=== PATIENT | female | born 1950 | race Caucasian/White ===

== ENCOUNTER → 2022-05-09 09:04 | Outpatient (BNVA) | payer MEDICARE, OTHER, SELFPAY | PROVIDERS: PCP Nurse Practitioner Family; Visit Provider Hospitalist | DX: J45.20 Mild intermittent asthma, uncomplicated (principal) | CPT/HCPCS: 99202 ==

== ENCOUNTER 2022-12-20 07:21 | Outpatient (REF) | payer MEDICARE, OTHER, SELFPAY ==
--- NOTE | ~2022-12-20 | XR_ITS ---
EXAMINATION: XR CHEST 2 VIEWS CLINICAL INFORMATION: Asthma. COMPARISON: None. TECHNIQUE: Frontal and lateral views of the chest were obtained. FINDINGS: The heart, great vessels, pulmonary vasculature and mediastinum are normal. The lungs show no focal infiltrate, effusion or pneumothorax. There is mild bronchiolar wall thickening. There is no acute osseous abnormality. XR/XR chest 2V IMPRESSION: 1. No focal infiltrate or congestive heart failure is seen. 2. There is mild bronchiolar wall thickening, consistent with the provided history of asthma.
== END 2022-12-20 07:22 | disposition home or self-care (01) ==
LOC: HO.XRAY 07:21
PROVIDERS: PCP Nurse Practitioner Family; Visit Provider Hospitalist
DX: J45.909 Unspecified asthma, uncomplicated (principal)
CPT/HCPCS: 71046

== ENCOUNTER 2022-12-22 15:40 | Outpatient (REF) | payer MEDICARE, OTHER, SELFPAY ==
--- NOTE | 2022-12-22 17:24 | PFT_ITS ---
INDICATION: Asthma. SPIROMETRY: FEV1 to FVC of 75%. FEV1 of 2.09 L, which is 100% predicted. FVC of 2.77 L, which is 100% predicted. No significant response to bronchodilators noted. Maximum voluntary ventilation 110% predicted. LUNG VOLUMES: Total lung capacity 95% predicted. DIFFUSION CAPACITY: DLCO 67% predicted. COMPARISON: None. INTERPRETATION: No obstructive nor restrictive ventilatory defects have been identified. No significant response to bronchodilators noted. Normal maximum voluntary ventilation. Lung volumes are within normal limits. The patient, however, has an isolated mild diffusion impairment. Should correct for hemoglobin. Clinical correlation warranted. If asthma is in the differential, methacholine challenge may be helpful in assessing for hyperactive airways. Ramiro Sebastian MD MR/MODL / [id number]
== END 2022-12-22 15:41 | disposition home or self-care (01) ==
LOC: HO.RESP 15:40
PROVIDERS: Visit Provider Hospitalist
DX: J45.909 Unspecified asthma, uncomplicated (principal)
CPT/HCPCS: 94060; 94727; 94729

== ENCOUNTER → 2023-02-17 08:48 | Outpatient (BNVA) | payer MEDICARE, OTHER, SELFPAY | PROVIDERS: PCP Nurse Practitioner Family; Visit Provider Hospitalist | DX: J45.20 Mild intermittent asthma, uncomplicated (principal); J31.0 Chronic rhinitis | CPT/HCPCS: 99212 ==

== ENCOUNTER 2024-02-07 09:37 | Outpatient (REF) | payer MEDICARE, OTHER, SELFPAY ==
[2024-02-07 09:00] VITALS: PULSE 69; RESP 16; O2SAT 98
--- NOTE | 2024-02-07 11:27 | PFT_ITS ---
Indication: Asthma Spirometry [FEV1 to FVC 65% post bronchodilators 71% pre bronchodilator. FEV1 1.8 L; FVC 2.7 L. there was a significant response to bronchodilators noted. Maximum voluntary ventilation 85% predicted] Lung Volumes [Total lung capacity 94% predicted] Diffusion Capacity [Diffusing capacity 85% predicted] Comparisons [none] Interpretation [There is an obstructive ventilatory defect consistent with mild obstructive airway disease. This may be the result of uncontrolled asthma versus mild COPD. The patient did have a significant response to bronchodilators noted. Also small airways disease. Lung volumes and diffusing capacity within normal limits. Clinical correlation worth it.] MTDD
== END 2024-02-07 09:38 | disposition home or self-care (01) ==
LOC: HO.RESP 09:37
PROVIDERS: PCP Internal Medicine; Visit Provider Hospitalist
DX: J45.20 Mild intermittent asthma, uncomplicated (principal)
CPT/HCPCS: 94010; 94640; 94727; 94729

== ENCOUNTER → 2024-02-07 11:27 | Outpatient (BNV) | payer MEDICARE, OTHER, SELFPAY | PROVIDERS: PCP Internal Medicine; Visit Provider Hospitalist | DX: J45.20 Mild intermittent asthma, uncomplicated (principal) | CPT/HCPCS: 94060; 94727; 94729 ==

== ENCOUNTER 2024-03-05 09:14 | Outpatient (AMB) | payer MEDICARE, OTHER, SELFPAY ==
[2024-03-05 09:35] VITALS: PULSE 72; O2SAT 97; BMI 24.2
--- NOTE | 2024-03-05 09:35 | A.OFFVIS_ITS ---
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 She the patient has done well on the current regimen. She does have underlying allergies and has responded well to the allergy therapy. She denies having to use any prednisone. And she is not using her rescue inhaler regularly, Actually probably once or twice a month. the patient has not had any recent pulmonary function studies are chest x-rays. Her last pulmonary function studies done in [place] she was told that her lung capacity was good. I do not have those results to review. The patient also has been reluctant taking too many medications. She the patient does not like the idea of using inhaled steroids. She had been on an ellipta device. However she stopped it because she was getting a dry mouth and sore throat and she does not feel like she needed it. Therefore she stop did several months ago and she has been okay without it. 02/17/2023 the patient is here for a pulmonary follow-up visit. The patient overall doing well. She is responding well to the current medication regimen. She has not had any flare ups and has not required any prednisone. She did undergo pulmonary function studies and we personally reviewed them. No evidence of any obstructive nor restrictive ventilatory defects. However, she has a moderate isolated diffusion impairment. No evidence of any anemia. No clear explanation for that impairment. At this point will plan to repeat the PFTs in 1 years time. If the patient develops any worsening symptoms prior to that she is to call for an earlier assessment. In addition to that she had a chest x-ray that we personally reviewed demonstrating no acute disease. 03/05/2024 the patient is here for a pulmonary follow-up visit. Since we last spoke back in December did develop a worsening cough. Productive in nature. She felt some discomfort in the right side of her chest. [id number] severity. She was going to call the office but she just stayed home and she continue her respiratory medications. She is felt better overall. She has been working outside with a limitations. Although still feels a slight achiness on the right lung area. Her last chest x-ray was last year which demonstrated no acute disease. The patient has been on Ventolin. She did undergo pulmonary function studies which we personally reviewed demonstrating a mild obstruction. Therefore, I did have a sample of Breo to provide her and she is going to try daily. I did instruct her how to use it. In addition to that if her symptoms persist I did give her an x-ray order she can come in and get an x-ray. Will follow-up in 6 months or sooner if she does not feel any better. [facility] Medical History (Updated 03/05/24 @ 09:56 by Ramiro Sebastian MD) Chronic rhinitis Asthma Social History (Updated 05/09/22 @ 09:35 by ALINE Quintanilla) Patient Tobacco Use Status: Former Tobacco user Tobacco use type: Cigarette Years Smoked: 25 Years Review of Systems Const Denies fever(s) Eyes Denies change in vision ENT Denies change in voice and Reports nasal congestion Card Denies chest pain and Denies dyspnea Resp Reports cough and Denies dyspnea GI Reports no additional complaints Musc Reports no additional complaints Skin/Breast Denies rash Neuro Reports no additional complaints Physical Exam Vital Signs: Last Vital Signs Pulse 72 03/05/24 09:35 Pulse Ox 97 03/05/24 09:35 Oxygen Delivery Method Room Air 03/05/24 09:35 BMI result Body Mass Index 24.2 Const General: comfortable HEENT Head: Yes normal to inspection Eyes General: appearance normal, both eyes and all related structures Neck Neck: Yes supple Chest Chest palpation & inspection: normal inspection of the chest Resp Effort & Inspection: normal respiratory effort Auscultation: diminished lung sounds Cardio Rate: regular rate Rhythm: regular rhythm Heart sounds: S1 normal heart sound present and S2 normal heart sound present Skin General skin exam: no rashes or lesions noted Extrem General: No clubbing, No cyanosis and Yes edema (trace) Assessment & Plan Assessment & Plan (1) Asthma: Code(s): J45.909 - Unspecified asthma, uncomplicated Category: Medical Qualifiers: Asthma complication type: uncomplicated Asthma persistence: intermittent Asthma severity: mild Qualified Code(s): J45.20 - Mild intermitte nt asthma, uncomplicated (2) Chronic rhinitis: Code(s): J31.0 - Chronic rhinitis Category: Medical Plan Trial Breo 200 daily continue EDGARDO as needed nasal rinsing continue Accolate BID anti-istamines as needed CXR F/U 6 months Orders: Orders XR chest 2V Today R07.89 - Other chest pain Coding Level of Care Code Est Pt Level 4 (95474) Diagnoses Mild intermittent asthma without complication J45.20 Asthma complication type: uncomplicated Asthma persistence: intermittent Asthma severity: mild Chronic rhinitis J31.0 Time Spent (min) 16
== END 2024-03-05 10:00 | disposition home or self-care (01) ==
PROVIDERS: PCP Internal Medicine; Visit Provider Hospitalist
DX: J45.20 Mild intermittent asthma, uncomplicated (principal); J31.0 Chronic rhinitis
CPT/HCPCS: 99214

== ENCOUNTER → 2024-03-05 09:14 | Outpatient (BNVA) | payer MEDICARE, OTHER, SELFPAY | PROVIDERS: PCP Internal Medicine; Visit Provider Hospitalist | DX: J45.20 Mild intermittent asthma, uncomplicated (principal); J31.0 Chronic rhinitis | CPT/HCPCS: 99212 ==

== ENCOUNTER 2024-03-28 09:54 | Outpatient (REF) | payer MEDICARE, OTHER, SELFPAY ==
--- NOTE | ~2024-03-28 | XR_ITS ---
EXAMINATION: XR CHEST CLINICAL INFORMATION: Patient states she has been having problems with her asthma for a year. Chest pain. COMPARISON: December 22, 2022 TECHNIQUE: 2 views of the chest were obtained. FINDINGS: Mild S-shaped thoracolumbar scoliosis with multilevel degenerative changes. There is no gross pneumothorax. No pleural effusion. Heart size is normal. Moderate degenerative changes in the thoracic spine. No new focal consolidation to suggest pneumonia. XR/XR chest 2V IMPRESSION: No evidence of pneumonia.
== END 2024-03-28 09:55 | disposition home or self-care (01) ==
LOC: HO.XRAY 09:54
PROVIDERS: PCP Internal Medicine; Visit Provider Hospitalist
DX: R07.89 Other chest pain (principal)
CPT/HCPCS: 71046

== ENCOUNTER 2024-07-24 07:26 | Outpatient (AMB) | payer MEDICARE, OTHER, SELFPAY ==
[2024-07-24 07:48] VITALS: BP 134/80; PULSE 73; O2SAT 96; BMI 25.1
--- NOTE | 2024-07-24 07:48 | MHC.PC.OV ---
Vital Signs 07/24/24 07:48 Height 5 ft 4 in Weight 146 lb BMI 25.1 BP 134/80 Blood Pressure Location Lt brachial Position Sitting Pulse 73 Pulse Source Pulse Oximeter Pulse Oximetry (%) 96 Oxygen Delivery Method Room Air Intake Visit Reasons: Annual physical Intake Note: Pt is here today as a New patient to [facility] care and PE Allergies acetaminophen [From Tylenol] Allergy (Severe, Verified 07/24/24 07:50) Vomiting NSAIDS (Non-Steroidal Anti-Inflamma Allergy (Severe, Verified 07/24/24 07:50) Hives tetanus toxoid, adsorbed Allergy (Severe, Verified 07/24/24 07:50) Anaphylaxis Medication List - Last Reconciled 07/24/24 by Audra Espinoza MD albuterol sulfate 90 mcg/actuation 2 puffs inhalation Q6H PRN amlodipine 5 mg PO DAILY irbesartan 150 mg PO DAILY levothyroxine (Levoxyl) 50 mcg PO DAILY rosuvastatin 20 mg PO BEDTIME zafirlukast 20 mg PO BID Tobacco use date assessed: 07/24/24 Fall risk assessment: No Falls in past year Last assessed Fall Risk: 07/24/24 Dental Screening Dental Screen Date: 07/24/24 Did you have a dental visit in the last 12 months?: Yes Did you have a dental problem in the last 6 months where you did not have access to dental care?: Yes Was dental information given to patient?: Patient has dentist HPI Annual physical HPI Details Pt presents for [employer]AF[employer]CTION POL[employer] PE. Past medical history includes hypertension hyperlipidemia hypothyroidism. Patient complains of persistent chronic right knee pain for the last 2 years since total replacement surgery. She is established with [facility]. 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 1. Little interest or pleasure in doing things: not at all 2. Feeling down, depressed, or hopeless: not at all 3. Trouble falling or staying asleep, or sleeping too much: not at all 4. Feeling tired or having little energy: not at all 5. Poor appetite or overeating: not at all 6. Feeling bad about yourself - or that you are a failure or have let yourself or your family down: not at all 7. Trouble concentrating on things, such as reading the newspaper or watching television: not at all 8. Moving or speaking so slowly that other people could have noticed. Or the opposite - being so fidgety or restless that you have been moving around a lot more than usual: not at all 9. Thoughts that you would be better off or of hurting yourself in some way: not at all Total score: 0 Depression Screening Interpretation: Negative Depression Screening Done: Yes 32038 - PHQ-9 Billing: Yes Source: Developed by Drs. Hunter Galarza, Palmira Leiva, Jarett Parra and colleagues, with an educational sachin from [employer] Thrive Questionnaire Date Thrive assessed: 07/24/24 I am a: Patient What is your living situation today?: I have a steady place to live Within the past 12 months, did the food you bought not last and you didn't have the money to get more?: Never true Within the past 12 months, did you worry whether your food would run out before you got money to buy more?: Never true Do you have trouble paying for medicines?: No Do you have trouble getting transportation to medical appointments?: No Do you have trouble paying your heating and electricity bill?: No Do you have trouble taking care of your child, family member or friend?: No Do you have trouble with day-to-day activities such as bathing, preparing meals, shopping, managing finances, etc.?: No Are you currently unemployed and looking for a job?: No Are you interested in more education?: No THRIVE Score: 0 AUDIT C Alcohol Use Questionnaire (AUDIT-C) 1. How often do you have a drink containing alcohol?: Monthly or less 2. How many drinks containing alcohol do you have on a typical day when you are drinking?: 1 or 2 3. How often do you have six or more drinks on one occasion?: Never Total Score: 1 GABRIEL-7 AMB Questionnaire GABRIEL-7 Date GABRIEL - 7 assessed: 07/24/24 Feeling nervous, anxious, or on edge: 0 = Not at all Not being able to stop or control worryin = Not at all Worrying too much about different things: 0 = Not at all Trouble relaxin = Not at all Being so restless that it is hard to sit still: 0 = Not at all Becoming easily annoyed or irritable: 0 = Not at all Feeling afraid as if something awful might happen: 0 = Not at all Total GABRIEL-7 score (0-4 normal; 5-9 mild; 10-14 moderate; 15-21 severe): 0 Source: Developed by Drs. Hunter Galarza, Palmira Leiva, Jarett Parra and colleagues, with an educational sachin from [employer] Review of Systems Const All systems reviewed & are unremarkable except as noted in HPI and below Reports no additional complaints Eyes Reports no additional complaints ENT Reports no additional complaints Card Reports no additional complaints Resp Reports no additional complaints GI Reports no additional complaints Reports no additional complaints Physical exam (Primary Care) Vital Signs: Last Vital Signs Pulse 73 07/24/24 07:48 BP 134/80 07/24/24 07:48 Pulse Ox 96 07/24/24 07:48 Oxygen Delivery Method Room Air 07/24/24 07:48 BMI result Body Mass Index 25.1 Tobacco/Smoking Status: Tobacco use Status Tobacco use date assessed 07/24/24 07/24/24 07:56 Patient Tobacco Use Status Former Tobacco user 07/24/24 07:49 Tobacco use type Cigarette 07/24/24 07:49 e-Cigarette/Vaping Use Never Used 07/24/24 07:56 PHQ-9: PHQ-9 Score PHQ-9: Total score 0 07/24/24 07:56 Depression Screening Interpretation: Negative Thrive Assessment: Date of Thrive Assessment Date Thrive assessed 07/24/24 07/24/24 07:56 Const General: no acute distress HENMT Head: Yes normal to inspection Ears: hearing grossly normal bilaterally Face and sinus: Yes normal facial exam Throat: Yes posterior oropharynx normal Eyes General: appearance normal, both eyes and all related structures Resp Effort & Inspection: normal respiratory effort Auscultation: clear to auscultation bilaterally Cardio Rhythm: regular rhythm Heart sounds: S1 normal heart sound present and S2 normal heart sound present GI Inspection: Yes normal to inspection Palpation (GI): Soft to palpation Percussion: Yes normal to percussion Auscultation: normal bowel sounds Extrem Other: There is tenderness and significantly decreased range of motion right knee Coding Level of Care Code New Pt Prev Care >65yr (40017) Diagnoses History of knee replacement Z96.659 HTN (hypertension) I10 Hypothyroid E03.9 Annual physical exam Z00.00 Vitamin D deficiency E55.9 Assessment & Plan Assessment & Plan (1) History of knee replacement: Comment: bilateral , R knee persistent pain and swelling after surgery 2021 [facility] Code(s): Z96.659 - Presence of unspecified artificial knee joint Category: Surgical Plan: Patient will follow-up with ortho (2) HTN (hypertension): Code(s): I10 - Essential (primary) hypertension Category: Medical Plan: Continue current medications return for fasting blood work (3) Hypothyroid: Code(s): E03.9 - Hypothyroidism, unspecified Category: Medical Plan: Continue levothyroxine check TSH (4) Annual physical exam: Code(s): Z00.00 - Encounter for general adult medical examination without abnormal findings Category: Medical Plan: Well-balanced diet regular physical activity discussed with the patient she declined mammogram and colonoscopy (5) Vitamin D deficiency: Code(s): E55.9 - Vitamin D deficiency, unspecified Category: Medical Plan: Continue vitamin-D Orders: Orders Complete Blood Count Auto Diff Today E03.9 - Hypothyroidism, unspecified, E55.9 - Vitamin D deficiency, unspecified, Z00.00 - Encounter for general adult medical examination without abnormal findings Comprehensive [place]. Panel Fast Today E03.9 - Hypothyroidism, unspecified, E55.9 - Vitamin D deficiency, unspecified, Z00.00 - Encounter for general adult medical examination without abnormal findings Lipid Panel Today E03.9 - Hypothyroidism, unspecified, E55.9 - Vitamin D deficiency, unspecified, Z00.00 - Encounter for general adult medical examination without abnormal findings TSH reflex Free T4 Today E03.9 - Hypothyroidism, unspecified, E55.9 - Vitamin D deficiency, unspecified, Z00.00 - Encounter for general adult medical examination without abnormal findings Vitamin D 25-OH Total Today E03.9 - Hypothyroidism, unspecified, E55.9 - Vitamin D deficiency, unspecified, Z00.00 - Encounter for general adult medical examination without abnormal findings Medications: New amlodipine 5 mg PO DAILY 90 tabs 3RF irbesartan 150 mg PO DAILY 90 tabs 3RF rosuvastatin 20 mg PO BEDTIME 90 tabs 3RF levothyroxine (Levoxyl) 50 mcg PO DAILY 90 tabs 3RF
== END 2024-07-24 08:19 | disposition home or self-care (01) ==
PROVIDERS: PCP Internal Medicine; Visit Provider Internal Medicine
DX: Z00.00 Encounter for general adult medical examination without abnormal findings (principal); Z96.659 Presence of unspecified artificial knee joint; I10 Essential (primary) hypertension; E03.9 Hypothyroidism, unspecified; E55.9 Vitamin D deficiency, unspecified

== ENCOUNTER → 2024-07-24 07:26 | Outpatient (BNVA) | payer MEDICARE, OTHER, SELFPAY | PROVIDERS: PCP Internal Medicine; Visit Provider Internal Medicine | DX: E03.9 Hypothyroidism, unspecified (principal); E55.9 Vitamin D deficiency, unspecified | CPT/HCPCS: 96127; 99387 ==

== ENCOUNTER 2024-08-06 07:08 | Outpatient (REF) | payer MEDICARE, OTHER, SELFPAY ==
[2024-08-06 10:11] LABS: MANUAL DIFF FLAG NO
[2024-08-06 10:21] LABS: Basophils Percent Auto 0.2 % (0-2); Eosinophils Absolute Auto 0.4 X10*3/uL (0.0-0.4); Eosinophils Percent Auto 6.4 % (0-4); Hematocrit 40.2 % (37.0-47.0); Hemoglobin 13.4 g/dl (12.0-16.0); Imm Gran Abs Auto 0.03 X10*3/uL (0.00-0.03); Imm Gran Pct Auto 0.5 % (0.0-0.4); Lymphocytes Absolute Auto 1.9 X10*3/uL (1.2-4.9); Lymphocytes Percent Auto 32.1 % (20-40); Mean Corpuscular HGB Conc 33.3 g/dl (31.0-35.0); Mean Corpuscular Hemoglobin 30.8 pg (27.0-33.0); Mean Corpuscular Volume 92.4 fL (80.0-98.0); Mean Platelet Volume 10.2 fL (9.4-12.3); Monocytes Absolute Auto 0.6 X10*3/uL (0.1-1.2); Monocytes Percent Auto 9.5 % (2-11); Neutrophils Percent Auto 51.3 % (45-73); Platelet Count 205 X10*3/uL (160-400); Red Blood Count 4.35 X10*6/uL (4.20-5.50); Red Cell Distribution Width 12.6 % (11.0-16.0); White Blood Count 5.8 X10*3/uL (4.8-10.8)
[2024-08-06 11:04] LABS: Alanine Aminotransferase 21 U/L (0-31); Albumin Level 4.3 g/dL (3.5-5.0); Alkaline Phosphatase 114 U/L (39-117); Anion Gap 10 (12-20); Aspartate Amino Transferase 34 U/L (5-31); Bilirubin Total 0.7 mg/dL (0.0-1.0); Blood Urea Nitrogen 16 mg/dL (9-16); Calcium 10.6 mg/dL (8.4-10.2); Carbon Dioxide 27 mmol/L (22-29); Chloride 110 mmol/L (96-108); Cholesterol 163 mg/dL (<200); Estimated Glomerular Filt Rate > 60; Glucose Fasting 101 mg/dL (60-99); HDL Cholesterol 40 mg/dL (>40); LDL Cholesterol Calculated 104 mg/dL (<100); Potassium 4.2 mmol/L (3.3-5.1); Sodium 143 mmol/L (135-145); TSH reflex Free T4 0.44 uIU/mL (0.32-4.0); Total Protein 7.1 g/dL (6.5-8.0); Triglycerides 99 mg/dL (<150); Vitamin D 25-OH Total 76.1 ng/mL (>30)
== END 2024-08-06 07:09 | disposition home or self-care (01) ==
LOC: HO.HMGCLDS 07:08
PROVIDERS: PCP Internal Medicine; Visit Provider Internal Medicine
DX: Z00.00 Encounter for general adult medical examination without abnormal findings (principal); E03.9 Hypothyroidism, unspecified; E55.9 Vitamin D deficiency, unspecified
CPT/HCPCS: 36415; 80053; 80061; 82306; 84443; 85025

== ENCOUNTER 2024-10-29 08:53 | Outpatient (AMB) | payer MEDICARE, OTHER, SELFPAY ==
--- NOTE | 2024-10-29 09:07 | A.OFFVIS_ITS ---
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 She the patient has done well on the current regimen. She does have underlying allergies and has responded well to the allergy therapy. She denies having to use any prednisone. And she is not using her rescue inhaler regularly, Actually probably once or twice a month. the patient has not had any recent pulmonary function studies are chest x-rays. Her last pulmonary function studies done in [place] she was told that her lung capacity was good. I do not have those results to review. The patient also has been reluctant taking too many medications. She the patient does not like the idea of using inhaled steroids. She had been on a n ellipta device. However she stopped it because she was getting a dry mouth and sore throat and she does not feel like she needed it. Therefore she stop did several months ago and she has been okay without it. 02/17/2023 the patient is here for a pulmonary follow-up visit. The patient overall doing well. She is responding well to the current medication regimen. She has not had any flare ups and has not required any prednisone. She did undergo pulmonary function studies and we personally reviewed them. No evidence of any obstructive nor restrictive ventilatory defects. However, she has a moderate isolated diffusion impairment. No evidence of any anemia. No clear explanation for that impairment. At this point will plan to repeat the PFTs in 1 years time. If the patient develops any worsening symptoms prior to that she is to call for an earlier assessment. In addition to that she had a chest x-ray that we personally reviewed demonstrating no acute disease. 03/05/2024 the patient is here for a pulmonary follow-up visit. Since we last spoke back in December did develop a worsening cough. Productive in nature. She felt some discomfort in the right side of her chest. [id number] severity. She was going to call the office but she just stayed home and she continue her respiratory medications. She is felt better overall. She has been working outside with a limitations. Although still feels a slight achiness on the right lung area. Her last chest x-ray was last year which demonstrated no acute disease. The patient has been on Ventolin. She did undergo pulmonary function studies which we personally reviewed demonstrating a mild obstruction. Therefore, I did have a sample of Breo to provide her and she is going to try daily. I did instruct her how to use it. In addition to that if her symptoms persist I did give her an x-ray order she can come in and get an x-ray. Will follow-up in 6 months or sooner if she does not feel any better. 10/29/2024 the patient is here for pulmonary follow-up visit. Overall she is doing okay. She could not get the Breo filled. Was not covered by her insurance. She has had to use her rescue inhaler. 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 The patient does have allergy medicines that she takes as well. She needs to have a maintenance inhaler. I will go ahead and send her Symbicort looks like it is covered. We did talk about how to use it. The patient did have a chest x-ray which we personally reviewed. Her lung parenchyma looks good. She does have some scoliosis. If she has any issues she will call for an earlier assessment otherwise will follow-up in the end of the summer. 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 Housing: House Patient Tobacco Use Status: Former Tobacco user Tobacco use type: Cigarette Years Smoked: 25 Years e-Cigarette/Vaping Use: Never Used service: No Current occupational status: retired Cognitive needs: No Hearing needs: No Vision needs: No Review of Systems Const Denies fever(s) Eyes Denies change in vision ENT Denies change in voice and Reports nasal congestion Card Denies chest pain and Denies dyspnea Resp Reports cough and Denies dyspnea GI Reports no additional complaints Musc Reports no additional complaints Skin/Breast Denies rash Neuro Reports no additional complaints Physical Exam Vital Signs: Last Vital Signs Pulse 66 10/29/24 09:08 BP 122/74 10/29/24 09:08 Pulse Ox 99 10/29/24 09:08 Oxygen Delivery Method Room Air 10/29/24 09:08 BMI result Body Mass Index 25.9 Const General: comfortable HEENT Head: Yes normal to inspection Eyes General: appearance normal, both eyes and all related structures Neck Neck: Yes supple Chest Chest palpation & inspection: normal inspection of the chest Resp Effort & Inspection: normal respiratory effort Auscultation: diminished lung sounds Cardio Rate: regular rate Rhythm: regular rhythm Heart sounds: S1 normal heart sound present and S2 normal heart sound present Skin General skin exam: no rashes or lesions noted Extrem General: No clubbing, No cyanosis and Yes edema (trace) Assessment & Plan Assessment & Plan (1) Asthma: Code(s): J45.909 - Unspecified asthma, uncomplicated Category: Medical Qualifiers: Asthma complication type: uncomplicated Asthma persistence: intermittent Asthma severity: mild Qualified Code(s): J45.20 - Mild intermittent asthma, uncomplicated (2) Chronic rhinitis: Code(s): J31.0 - Chronic rhinitis Category: Medical Plan start Symbicort continue EDGARDO as needed nasal rinsing continue Accolate BID anti-histamine as needed CXR ok F/U 8 months Medications: New budesonide-formoterol 160-4.5 mcg/actuation 2 puffs inhalation BID 10.2 grams 11RF 30 days J44.89 - Other specified chronic obstructive pulmonary disease Coding Level of Care Code Est Pt Level 4 (82858) Diagnoses Mild intermittent asthma without complication J45.20 Asthma complication type: uncomplicated Asthma persistence: intermittent Asthma severity: mild Chronic rhinitis J31.0 Time Spent (min) 16
[2024-10-29 09:08] VITALS: BP 122/74; PULSE 66; O2SAT 99; BMI 25.9
== END 2024-10-29 09:30 | disposition home or self-care (01) ==
PROVIDERS: PCP Internal Medicine; Visit Provider Hospitalist
DX: J45.20 Mild intermittent asthma, uncomplicated (principal); J31.0 Chronic rhinitis
CPT/HCPCS: 99214

== ENCOUNTER → 2024-10-29 08:53 | Outpatient (BNVA) | payer MEDICARE, OTHER, SELFPAY | PROVIDERS: PCP Internal Medicine; Visit Provider Hospitalist | DX: J45.20 Mild intermittent asthma, uncomplicated (principal); J31.0 Chronic rhinitis | CPT/HCPCS: 99212 ==

== ENCOUNTER 2025-01-23 08:44 | Outpatient (AMB) | payer MEDICARE, OTHER, SELFPAY ==
[2025-01-23 08:49] VITALS: BP 114/66; PULSE 82; RESP 18; TEMP 36.4; O2SAT 98; BMI 25.9
--- NOTE | 2025-01-23 08:49 | MHC.PC.OV ---
Vital Signs 01/23/25 08:49 Height 5 ft 4 in Weight 151 lb BMI 25.9 BP 114/66 Blood Pressure Location Rt brachial Position Sitting Respiration 18 Pulse 82 Pulse Source Pulse Oximeter Temp 97.6 F Temp Source Oral Pulse Oximetry (%) 98 Oxygen Delivery Method Room Air Intake Visit Reasons: 6 month follow up Intake Note: Pt is here today for 6 months follow up visit. Pt states that she has been having back pain to the point where its hard to sit down or walk. Allergies acetaminophen [From Tylenol] Allergy (Severe, Verified 01/23/25 08:52) Vomiting NSAIDS (Non-Steroidal Anti-Inflamma Allergy (Severe, Verified 01/23/25 08:52) Hives tetanus toxoid, adsorbed Allergy (Severe, Verified 01/23/25 08:52) Anaphylaxis Medication List - Last Reconciled 01/23/25 by Audra Espinoza MD albuterol sulfate 90 mcg/actuation 2 puffs inhalation Q6H PRN amlodipine 5 mg PO DAILY baclofen 10 mg PO BEDTIME budesonide-formoterol 160-4.5 mcg/actuation 2 puffs inhalation BID 30 days irbesartan 150 mg PO DAILY levothyroxine (Levoxyl) 50 mcg PO DAILY meloxicam 15 mg PO DAILY rosuvastatin 20 mg PO BEDTIME zafirlukast 20 mg PO BID Tobacco use date assessed: 01/23/25 Fall risk assessment: No Falls in past year Last assessed Fall Risk: 01/23/25 Dental Screening Dental Screen Date: 01/23/25 Did you have a dental visit in the last 12 months?: Yes Did you have a dental problem in the last 6 months where you did not have access to dental care?: No Was dental information given to patient?: Patient has dentist HPI 6 month follow up HPI Details Pt c/o LBP radiating to both legs for 1 week after cleaning a barn. Pt denies leg weakness, change in bowel or bladder function. Patient had similar symptoms before. Hypertension hyperlipidemia chronic asthma are controlled on current medications. Patient has been using Symbicort twice a day and uses albuterol only occasionally,no more than twice a week. 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 1. Little interest or pleasure in doing things: nearly every day 2. Feeling down, depressed, or hopeless: not at all 3. Trouble falling or staying asleep, or sleeping too much: not at all 4. Feeling tired or having little energy: several days 5. Poor appetite or overeating: not at all 6. Feeling bad about yourself - or that you are a failure or have let yourself or your family down: not at all 7. Trouble concentrating on things, such as reading the newspaper or watching television: not at all 8. Moving or speaking so slowly that other people could have noticed. Or the opposite - being so fidgety or restless that you have been moving around a lot more than usual: not at all 9. Thoughts that you would be better off or of hurting yourself in some way: not at all Total score: 4 Depression Screening Interpretation: Negative Depression Screening Done: Yes 26721 - PHQ-9 Billing: Yes Source: Developed by Drs. Hunter Galarza, Palmira Leiva, Jarett Parra and colleagues, with an educational sachin from [employer]. Thrive Questionnaire Date Thrive assessed: 01/23/25 I am a: Patient What is your living situation today?: I have a steady place to live Within the past 12 months, did the food you bought not last and you didn't have the money to get more?: Never true Within the past 12 months, did you worry whether your food would run out before you got money to buy more?: Never true Do you have trouble paying for medicines?: No Do you have trouble getting transportation to medical appointments?: No Do you have trouble paying your heating and electricity bill?: No Do you have trouble taking care of your child, family member or friend?: No Do you have trouble with day-to-day activities such as bathing, preparing meals, shopping, managing finances, etc.?: No Are you currently unemployed and looking for a job?: No Are you interested in more education?: No Please select the resources that you would like help with: None Currently or been in a relationship where the following occur: No concerns reported THRIVE Score: 0 AUDIT C Alcohol Use Questionnaire (AUDIT-C) 1. How often do you have a drink containing alcohol?: Never 3. How often do you have six or more drinks on one occasion?: Never Total Score: 0 GABRIEL-7 AMB Questionnaire GABRIEL-7 Date GABRIEL - 7 assessed: 01/23/25 Feeling nervous, anxious, or on edge: 0 = Not at all Not being able to stop or control worryin = Not at all Worrying too much about different things: 0 = Not at all Trouble relaxin = Not at all Being so restless that it is hard to sit still: 0 = Not at all Becoming easily annoyed or irritable: 0 = Not at all Feeling afraid as if something awful might happen: 0 = Not at all Total GABRIEL-7 score (0-4 normal; 5-9 mild; 10-14 moderate; 15-21 severe): 0 Source: Developed by Drs. Hunter Galarza, Palmira Leiva, Jarett Parra and colleagues, with an educational sachin from [employer]. GABRIEL-7 Assessment Billing GABRIEL-7 Assessment Tool: GABRIEL-7 Assessment 55502 Review of Systems Const All systems reviewed & are unremarkable except as noted in HPI and below Reports no additional complaints Eyes Reports no additional complaints ENT Reports no additional complaints Card Reports no additional complaints Resp Reports no additional complaints GI Reports no additional complaints Reports no additional complaints Physical exam (Primary Care) Vital Signs: Last Vital Signs Temp 97.6 F 01/23/25 08:49 Pulse 82 01/23/25 08:49 Resp 18 01/23/25 08:49 BP 114/66 01/23/25 08:49 Pulse Ox 98 01/23/25 08:49 Oxygen Delivery Method Room Air 01/23/25 08:49 BMI result Body Mass Index 25.9 Tobacco/Smoking Status: Tobacco use Status Tobacco use date assessed 01/23/25 01/23/25 08:59 Patient Tobacco Use Status Former Tobacco user 01/23/25 08:59 Tobacco use type Cigarette 01/23/25 08:59 e-Cigarette/Vaping Use Never Used 01/23/25 08:59 PHQ-9: PHQ-9 Score PHQ-9: Total score 4 01/23/25 08:59 Depression Screening Interpretation: Negative Thrive Assessment: Date of Thrive Assessment Date Thrive assessed 01/23/25 01/23/25 08:59 Currently or been in a relationship where the following occur: No concerns reported Const General: no acute distress HENMT Head: Yes normal to inspection Mouth: Normal oral and palatal mucosa present Neck Neck: Yes supple Resp Effort & Inspection: normal respiratory effort Auscultation: clear to auscultation bilaterally Cardio Rhythm: regular rhythm Heart sounds: S1 normal heart sound present and S2 normal heart sound present GI Inspection: Yes normal to inspection Palpation (GI): Soft to palpation Percussion: Yes normal to percussion Auscultation: normal bowel sounds Back/Spine/Pelvis Other: Paraspinal tenderness in the lower lumbar region left more than right, motor strength is 5/5 bilaterally, deep tendon reflexes 1+ bilaterally Extrem General: Yes no clubbing, cyanosis or edema Coding Level of Care Code Est Pt Level 4 (30160) Complex EM visit Add On G2211 Diagnoses Hypothyroid E03.9 HTN (hypertension) I10 Hyperlipidemia E78.5 Mild intermittent asthma without complication J45.20 Asthma severity: mild Asthma persistence: intermittent Asthma complication type: uncomplicated Sciatica M54.30 Additional Codes GABRIEL-7 Assessment Billing - GABRIEL-7 Assessment Tool: GABRIEL-7 Assessment 73123 ([id number]) PHQ-9 - 40585 - PHQ-9 Billing: Yes ([id number]) Assessment & Plan Assessment & Plan (1) Hypothyroid: Code(s): E03.9 - Hypothyroidism, unspecified Category: Medical Plan: Continue levothyroxine (2) HTN (hypertension): Code(s): I10 - Essential (primary) hypertension Category: Medical Plan: Continue current medications (3) Hyperlipidemia: Code(s): E78.5 - Hyperlipidemia, unspecified Category: Medical Plan: Continue statin (4) Asthma: Comment: Controlled on Symbicort and zafirlukast, established with pulmonology, patient declined Pneumovax and influenza vaccine Code(s): J45.909 - Unspecified asthma, uncomplicated Category: Medical Qualifiers: Asthma severity: mild Asthma persistence: intermittent Asthma complication type: uncomplicated Qualified Code(s): J45.20 - Mild intermittent asthma, uncomplicated Plan: Continue current medications follow-up with pulmonology (5) Sciatica: Code(s): M54.30 - Sciatica, unspecified side Category: Medical Plan: Meloxicam and baclofen prescribed. PT was recommended but patient declined Orders: Orders TSH reflex Free T4 6 Months E03.9 - Hypothyroidism, unspecified, E55.9 - Vitamin D deficiency, unspecified, E78.5 - Hyperlipidemia, unspecified, I10 - Essential (primary) hypertension Parathyroid Hormone Intact 6 Months E03.9 - Hypothyroidism, unspecified, E55.9 - Vitamin D deficiency, unspecified, E78.5 - Hyperlipidemia, unspecified, I10 - Essential (primary) hypertension Comprehensive [place]. Panel Fast 6 Months E03.9 - Hypothyroidism, unspecified, E55.9 - Vitamin D deficiency, unspecified, E78.5 - Hyperlipidemia, unspecified, I10 - Essential (primary) hypertension Complete Blood Count Auto Diff 6 Months E03.9 - Hypothyroidism, unspecified, E55.9 - Vitamin D deficiency, unspecified, E78.5 - Hyperlipidemia, unspecified, I10 - Essential (primary) hypertension Lipid Panel 6 Months E03.9 - Hypothyroidism, unspecified, E55.9 - Vitamin D deficiency, unspecified, E78.5 - Hyperlipidemia, unspecified, I10 - Essential (primary) hypertension Vitamin D 25-OH Total 6 Months E03.9 - Hypothyroidism, unspecified, E55.9 - Vitamin D deficiency, unspecified, E78.5 - Hyperlipidemia, unspecified, I10 - Essential (primary) hypertension Calcium, Ionized 6 Months E03.9 - Hypothyroidism, unspecified, E55.9 - Vitamin D deficiency, unspecified, E78.5 - Hyperlipidemia, unspecified, I10 - Essential (primary) hypertension Medications: New baclofen 10 mg PO BEDTIME 14 tabs 0RF meloxicam 15 mg PO DAILY 14 tabs 0RF
== END 2025-01-23 10:13 | disposition home or self-care (01) ==
LOC: HO.HMCC 08:45
PROVIDERS: PCP Internal Medicine; Visit Provider Internal Medicine
DX: E03.9 Hypothyroidism, unspecified (principal); I10 Essential (primary) hypertension; E78.5 Hyperlipidemia, unspecified; J45.20 Mild intermittent asthma, uncomplicated; M54.30 Sciatica, unspecified side

== ENCOUNTER → 2025-01-23 08:44 | Outpatient (BNVA) | payer MEDICARE, OTHER, SELFPAY | PROVIDERS: PCP Internal Medicine; Visit Provider Internal Medicine | DX: I10 Essential (primary) hypertension (principal); E78.5 Hyperlipidemia, unspecified; J45.909 Unspecified asthma, uncomplicated; E03.9 Hypothyroidism, unspecified; J45.20 Mild intermittent asthma, uncomplicated; M54.30 Sciatica, unspecified side; E55.9 Vitamin D deficiency, unspecified; Z79.899 Other long term (current) drug therapy | CPT/HCPCS: 96127; 99212 ==

== ENCOUNTER 2025-08-13 07:55 | Outpatient (AMB) | payer MEDICARE, OTHER, SELFPAY ==
--- OUTSIDE RECORDS SUMMARY | 2025-08-13 07:59 | XMS_ITS | Encounter Summary ---
Author Organization [facility] Address [address] [place] [address] [place] [id number] Phone Care Team Providers Care Construction Equipment Technician Name Role Phone Remedios Louie MD Unavailable [phone] Phillip Coates MD Unavailable [phone] Everton Mast MD Unavailable [phone] Anahi Carmona SENIOR SOFTWARE TESTER Unavailable [phone] Dylan Rice MD Unavailable [email or web address] Anahi Carmona SENIOR SOFTWARE TESTER Primary Care Provider [phone] Everton Mast MD Unavailable [phone] Unknown, Unknown Primary Care Provider Waqar farias Encounter Details Date Type Department Care Team (Late st Contact Info) Description 08/05/2021 Procedure [facility] [address] [place] [address] Social History Tobacco Use Types Packs/Day Years Used Date Smoking Tobacco: Former Cigarettes 2 2 0 06/16/1996 - 06/16/1998 Smokeless Tobacco: Never Alcohol Use Standard Drinks/Week Comments Yes 0 (1 standard drink = 0.6 oz pure alcohol) few drinks per month only socially Comments No Sex and Gender Information Value Date Recorded Sex Assigned at Not on file Legal Sex Female 10:04 PM EDT Gender Identity Not on file Sexual Orientation Not on file documented as of this encounter Plan of Treatment Not on file documented as of this encounter Visit Diagnoses Not on filedocumented in this encounter Additional Health Concerns Assessment Noted Time PHQ-2 Depression Total Score: 0 09/30/20 20 2:00 PM EST documented as of this encounter Care Teams Construction Equipment Technician Relationship Specialty Start Date End Date Anahi Carmona, SENIOR SOFTWARE TESTER [address] [place] [address] PCP - General Family Medicine 11/24/17 01/07/24 Unknown, Yobani, MD PCP - General 01/08/24 Remedios Louie MD [address] [place] [id number] Historical LMR Provider 08/01/17 2 Phillip Coates MD [address] [place] [id number] [email or web address] Historical LMR Provider 08/01/17 10/23/21 Everton Mast MD [address] [place] [address] [email or web address] Historical LMR Provider 08/01/17 10/23/21 Anahi Carmona, SENIOR SOFTWARE TESTER [address] [place] [id number] Historical LMR Provider 08/01/17 Dylan Rice MD Historical LMR Provider 08/01/17 10/23/21 Everton Mast MD [address] [place] [address] [email or web address] Insurance Assigned Provider 01/23/21 10/21/23 documented as of this encounter Additional Source Comments The information contained in this document represents components of the legal health record. It is not the complete legal health record.[facility]
--- OUTSIDE RECORDS SUMMARY | 2025-08-13 07:59 | XMS_ITS | Patient Health Record ---
Author Organization [facility] Ozzy david Timmy Address [address] [place] [address] Care Team Providers Care Supervisor Underwriting Clerks Name Role Phone Kristine TRUJILLO, Anahi Primary Care Provider Supriya Portillo Unavailable [phone] Allergies Allergen (clinical drug ingredient) Drug/Non Drug Allergy documented on EMR Reaction Allergy Type Onset Date Status shrimp, shellfish (uncoded) swelling mouth face area Allergy Active morphine Morphine Sulfate itching Drug Allergy Active acetaminophen Tylenol vomiting Drug Allergy Act anette Cortisone Unknown Drug Allergy Active Reason For Referral No Information Medications Medication SIG (Take, Route, Frequency, Duration) Notes Start Date End Date Status Claritin Active Rosuvastatin Calcium 20 MG 1 tablet Oral ly Once a day Active Norvasc 2.5 MG 1 tablet Orally Once a day Active Ocuvite Active Qvar RediHaler 40 MCG/ACT Inhalation Active Vitamin E Active Vitamin D Active Levoxyl 50 MCG Orally Activ e Losartan Potassium 100 MG 1 tablet Orall y Once a day Active Social History Tobacco Use: Social History Observation Description Date Details (start date - stop date) Former Smoker NA - NA Tobacco Use/Smoking Question Answer Notes Are you a: former smoker When did you stop smoking? 1998 Additional Findings: Tobacco Non-User Cu rrent non-smoker,Ex-very heavy cigarette smoker (40+/day) Alcohol Screen Question Answer Notes Did you have a drink contain ing alcohol in the past year? Yes How often did you have a dri nk containing alcohol in the past year? 2 to 4 times a month (2 points) How many drinks did you have on a typical day when you were drinking in the past year? 1 or 2 drinks (0 point) How often did you have 6 or more drinks on one occasion in the past year? Never (0 point) Points 2 Interpretation Negative Tobacco use other than smoking: Question Answer Notes Are you an other tobacco user? 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 Plan Of Treatment Pending Test Test Name Order Date X ray : Foot, right 3V 12/30/2019 Insurance Providers Payer Name Payer Address Payer Phone Subscriber Number Group Number Insured Name Patient Relationship to Insured Coverage Start Date Coverage End Date Medicare National [employer]t [employer] [address] [place] [address] [id number] Sneha Fay Self - patient is the insured [employer] [address] [place] [address] [id number] Sneha Fay Self - patient is the insured Medical (General) History Medical History History ICD Code Arthritis asthma Back,Hip,and Knee pain High blood pressure Osteoporosis thyroid Measles Chicken pox Joint implants/screws Surgical History Surgery Date(Month/Year) knee surgery total knee 08/20/2012
--- OUTSIDE RECORDS SUMMARY | 2025-08-13 07:59 | XMS_ITS | Clinical Summary ---
Author Organization [facility] Address [address] [place] [phone] Phone Care Team Providers Care Collection Clerk Name Role Phone SoldotnaAnahi beard Raúl PAPER CONSERVATOR Unavailable [phone] Unknown, Unknown Primary Care Provider Waqar farias Allergies Active Allergy Reactions Criticality Noted Date Comments Acetaminophen Swelling,Nausea and/or Vomiting 03/30/2017 Fruit Extracts Unknown 03/30/2017 Mold Unknown 03/30/2017 Shellfish Containing Products Shortness Of Breath,Swelling High 03/30/2017 Tetanus And Diphtheria Toxoids Other (See Comments),Fever,Naus ea and/or Vomiting 10/18/2017 Td shot-sick/vomiting Tree And Shrub Pollen Shortness Of Breath,Cough High 03/30/2017 Venom-Honey Bee Unknown 03/30/2017 Medications cranberry conc-ascorbic acid 4,200-20 mg Cap 1 TAB Acti ve cholecalciferol (VITAMIN D3) 2,000 unit capsule Take 2,000 Units by mouth daily. Active vitamin E 400 UNIT capsule Take 400 Units by mouth daily. Active zafirlukast (ACCOLATE) 20 MG tablet TAKE ONE TABLET BY MOUTH TWICE A DAY 60 tablet 11 1 Active irbesartan (AVAPRO) 150 MG tablet Take 1 tablet (150 mg total) by mouth daily. 90 tablet 3 4 Active LEVOXYL 50 mcg tablet Take 1 tablet (50 mcg total) by mouth every morning. 90 tablet 3 4 Active rosuvastatin (CRESTOR) 20 MG tabletIndications:M ixed hyperlipidemia Take 1 tablet (20 mg total) by mouth daily. 90 tablet 3 4 Active amLODIPine (NORVASC) 5 MG tabletIndications:E ssential hypertension Take 1 tablet (5 mg total) by mouth daily. 90 tablet 3 4 Active Active Problems Problem Noted Date Diagnosed Date S/P total knee arthroplasty, right 06/21/2023 Midline cystocele 02/26/2022 Rectal disorder 02/26/2022 Stress incontinence of urine 02/26/2022 Arthritis of right knee 02/03/2022 Uterovaginal prolapse 09/30/2021 Asthma 08/05/2021 Chronic cough 10/15/2019 Hand arthritis 05/10/2018 Acquired hypothyroidism 10/18/2017 Essential hypertension 10/18/2017 Left knee pain 10/18/2017 Mixed hyperlipidemia 10/18/2017 Pain in both hands 10/18/2017 Routine medical exam 10/18/2017 Pelvic pressure in female 10/18/2017 Resolved Problems Problem Noted Date Diagnosed Date Resolved Date Anxiety 10/18/2017 05/10/2018 Immunizations No known immunizations Family History Medical History Relation Comments Asthma Brother Cerebral aneurysm Brother Post-traumatic stress disorder Brother No Known Problems Daughter 1 No Known Problems Daughter 2 Stroke Father Hyperlipidemia Mother Relation Status Comments Brother Alive Daughter 1 Alive Daughter 2 Alive Father (Age 69) heart disease Mother (Age 89) in her sl eep Social History Tobacco Use Types Packs/Day Years Used Date Smoking Tobacco: Former Cigarettes 2 2 0 06/16/1996 - 06/16/1998 Smokeless Tobacco: Never Tobacco Cessation:Counseling Given: Not Answered Alcohol Use Standard Drinks/Week Comments Yes 0 (1 standard drink = 0.6 oz pur e alcohol) 2/month, socially if that Education Answer Date Recorded Are you interested in more education? Not on sascha e 02/10/2023 Are you concerned about learning? Not on file 02/10/2023 No 02/10/2023 No 02/10/2023 Digital Access Answer Date Recorded No 03/13/2023 No 03/13/2023 Reliable internet access at home? Not on file 03/13/2023 Device with a working camera? Not on file Comments No Sex and Gender Information Value Date Recorded Sex Assigned at Not on file Legal Sex Female 10:04 PM EDT Gender Identity Not on file Sexual Orientation Not on file Last Filed Vital Signs Vital Sign Reading Time Taken Comments Blood Pressure 118/68 06/21/2023 9:43 AM EDT Pulse 88 06/21/2023 9:43 AM EDT Temperature 37.1 C (98.7 F) 01/26/2023 1:43 PM EDT Respiratory Rate 16 06/21/2023 9:43 AM EDT Oxygen Saturation 96% 06/21/2023 9:43 AM EDT Inhaled Oxygen Concentration - - Weight 66.1 kg (145 lb 12.8 oz) 06/21/2023 9:43 AM EDT Height 162.6 cm (5' 4.02 ) 06/21/2023 9:43 AM ED T Body Mass Index 25.01 06/21/2023 9:43 AM EDT Plan of Treatment Health Maintenance Due Date Last Done Comments SMOKING Hx and SMOKELESS TOBACCO SCREENING 1962 PNEUMOCOCCAL VACCINES (50+ years) (1 of 2 - PCV) 1968 COLOGUARD 1994 COLONOSCOPY 1994 COLORECTAL CANCER SCREENING 1994 FIT TEST 1994 FOBT 1994 SIGMOIDOSCOPY 1994 VIRTUAL COLONOSCOPY 1994 ZOSTER VACCINES (1 of 2) 1999 FOLLOW UP BONE DENSITY TESTING 03/07/2021 03/07/2019 BLOOD PRESSURE 12/20/2023 06/21/2023 CREATININE LEVEL 01/27/2024 01/26/2023, , 12/21/2021, Additional history exists DEPRESSION SCREENING 01/27/2024 01/26/2023 POTASSIUM LEVEL 01/27/2024 01/26/2023, 03/0 05/2022, 10/27/2021, Additional history exists TSH LEVEL 01/27/2024 01/26/2023, 10/16, 10/26/2020, Additional history exists RSV VACCINE (1 - 1-dose 75+ series) 2024 INFLUENZA VACCINE (#1) 2025 COVID-19 VACCINE ( - season) 2025 LIPID PANEL 07/10/2028 07/10/2023, 06/17, 10/27/2021, Additional history exists HEPATITIS C SCREENING Completed 10/03/2017, 017 OSTEOPOROSIS SCREENING INITIAL (ONE-TIME) Completed 03/07/2019 HEPATITIS A VACCINES Aged Out No long er eligible based on patient's age to complete this topic HIB VACCINES Aged Out No longer eligi ble based on patient's age to complete this topic MENINGOCOCCAL VACCINES (ACWY) Aged Out No longer eligible based on patient's age to complete this topic MENINGOCOCCAL VACCINES (B) Aged Out N o longer eligible based on patient's age to complete this topic Medical Devices Not on file Procedures Procedure Name Priority Date/Time Associated Diagnosis Comments LIPID PANEL Routine 07/10/2023 8:01 AM EDT Mixed hyperlipidemia TSH Routine 01/26/2023 2:41 PM EDT Acquired hypothyroidism COMPREHENSIVE METABOLIC PANEL Routine 01/26/2023 2:41 PM EDT Mixed hyperlipidemia BD DXA SCREENING Routine 03/07/2019 HEPATITIS C ANTIBODY, QUALITATIVE Routine 10/03/2017 8:08 AM EST Encounter for hepatitis C screening test for low risk patient from Last 3 Months or Most Recently Relevant to Health Maintenance Results * Lipid panel (07/10/2023 8:01 AM EDT) HDL 38 mg/dL [facility] Comment: Interpretation <40 mg/dL: Low HDL cholesterol (major risk factor for CHD) Greater than or equal to 60 mg/dL: High HDL cholesterol ( negative risk factor for CHD) HDL - cholesterol is affected by a number of factors, e.g. smoking, excerise, hormones, sex and age. CHOLESTEROL 140 0 - 240 mg/dL [facility] TRIGLYCERIDES 100 30 - 160 mg/dL [facility] LDL 82 50 - 129 mg/dL [facility] Comment: LDL levels in terms of risk for coronary heart disease: <100 mg/dL: Optimal 100-129 mg/dL: Near or above optimal 130-159 mg/dL: Borderline high 160-189 mg/dL: High >190 mg/dL: Very High CARDIAC RISK RATIO 3.7 3.3 - 4.4 C [facility] Blood 07/10/2023 8:01 AM EDT 07/10/2023 8:05 AM EDT us Anahi Carmona NP LAB BLOOD ORDERABLES Final Resu lt Performing Organization Address City/[facility]/ZIP Co de Phone Number [address] [address] * (ABNORMAL) Comprehensive metabolic panel (01/26/2023 2:41 PM EDT) SODIUM 141 133 - 146 mmol/L [facility] POTASSIUM 3.8 3.3 - 5.1 mmol/L [facility] CHLORIDE 106 96 - 108 mmol/L [facility] CO2 24 21 - 35 mmol/L [facility] BUN 10 6 - 19 mg/dL [facility] CREATININE 0.70 0.5 - 1.5 mg/dL [facility] GLUCOSE 93 70 - 99 mg/dL [facility] ALBUMIN 4.5 3.9 - 4.8 g/dL [facility] TOTAL PROTEIN 7.5 6.5 - 8.0 g/dL [facility] CALCIUM 10.4(H) 8.4 - 10.3 mg/dL [facility] ALKALINE PHOSPHATASE 136(H) 39 - 117 U/L [facility] TOTAL BILIRUBIN 0.6 0.0 - 1.2 mg/dL [facility] AST 34 0 - 37 U/L [facility] ALT 18 0 - 40 U/L [facility] GLOBULIN 3.0 1 - 4.8 g/dL [facility] EGFR 91 >59 mL/min/1.7 3m2 [facility] Comment:Estimated glomerular filtration rate calculated using the CKD-EPI refit equation. ANION GAP 15 10 - 20 mmol/L [facility] Blood 01/26/2023 2:41 PM EDT 01/26/2023 2:44 PM EDT us Anahi Carmona NP LAB BLOOD ORDERABLES Final Resu lt Performing Organization Address City/[facility]/ZIP Co de Phone Number [address] [address] * TSH (01/26/2023 2:41 PM EDT) TSH 0.91 0.27 - 4.20 uIU/mL [facility] Blood 01/26/2023 2:41 PM EDT 01/26/2023 2:44 PM EDT Anahi Carmona NP LAB BLOOD ORDERABLES Final Resu lt [address] [address] * DXA Screening (03/07/2019) Anatomical Region Laterality Modality Bone Density Bone Density Anahi Carmona NP IMG BD BONE DENSITY DEXA Edited Result - Final * Hepatitis C antibody, qualitative (10/03/2017 8:08 AM EST) HCV Negative Negative [facility] Comment: This is a screening test and should be confirmed with molecular testing Blood 10/03/2017 8:08 AM EST 10/03/2017 8:12 AM EST Anahi Carmona NP LAB BLOOD ORDERABLES Final Resu lt Performing Organization Address City/[facility]/ZIP Co de Phone Number [address] [address] from Last 3 Months or Most Recently Relevant to Health Maintenance Insurance MEDICARE PART A & B [facility] MEDICARE SUPPLEMENT MEDICARE PART A & B [facility] MEDICARE SUPPLEMENT MEDICARE PART A & B [facility] MEDICARE SUPPLEMENT MEDICARE PART A & B [facility] MEDICARE SUPPLEMENT MEDICARE PART A & B [employer] MEDICARE SUPPLEMENT MEDICARE PART A & B [employer] MEDICARE SUPPLEMENT MEDICARE PART A & B [employer] MEDICARE SUPPLEMENT MEDICARE PART A & B [employer] MEDICARE SUPPLEMENT MEDICARE PART A & B [facility] MEDICARE SUPPLEMENT Advance Directives For more information, please contact: [phone] (9AM - 5PM [facility], Monday-Monday) Documents on File Type Date Recorded 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 Historical LMR Provider 08/01/17 Additional Source Comments The information contained in this document represents components of the legal health record. It is not the complete legal health record.[facility]
[2025-08-13 08:14] VITALS: BP 124/64; PULSE 67; O2SAT 97; BMI 24.2
--- NOTE | 2025-08-13 08:14 | MHC.OFFVIS ---
Vital Signs 08/13/25 08:14 Height 5 ft 4 in Weight 141 lb 1.533 oz BMI 24.2 BP 124/64 Blood Pressure Location Lt brachial Position Sitting Pulse 67 Pulse Source Pulse Oximeter Pulse Oximetry (%) 97 Oxygen Delivery Method Room Air Intake Visit Reasons: asthma Director Compliance Required: No Accompanied by: Self / Same As Patient Allergies acetaminophen (From Tylenol) Allergy (Severe, Verified 08/13/25 08:18) Vomiting NSAIDS (Non-Steroidal Anti-Inflamma Allergy (Severe, Verified 08/13/25 08:18) Hives tetanus toxoid, adsorbed Allergy (Severe, Verified 08/13/25 08:18) Anaphylaxis HPI Comments Details: The patient is a 75-year-old woman with a known history of asthma previously followed by a 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 She the patient has done well on the current regimen. She does have underlying allergies and has responded well to the allergy therapy. She denies having to use any prednisone. And she is not using her rescue inhaler regularly, Actually probably once or twice a month. the patient has not had any recent pulmonary function studies are chest x-rays. Her last pulmonary function studies done in [place] she was told that her lung capacity was good. I do not have those results to review. The patient also has been reluctant taking too many medications. She the patient does not like the idea of using inhaled steroids. She had been on an ellipta device. However she stopped it because she was getting a dry mouth and sore throat and she does not feel like she needed it. Therefore she stop did several months ago and she has been okay without it. 02/17/2023 the patient is here for a pulmonary follow-up visit. The patient overall doing well. She is responding well to the current medication regimen. She has not had any flare ups and has not required any prednisone. She did undergo pulmonary function studies and we personally reviewed them. No evidence of any obstructive nor restrictive ventilatory defects. However, she has a moderate isolated diffusion impairment. No evidence of any anemia. No clear explanation for that impairment. At this point will plan to repeat the PFTs in 1 years time. If the patient develops any worsening symptoms prior to that she is to call for an earlier assessment. In addition to that she had a chest x-ray that we personally reviewed demonstrating no acute disease. 03/05/2024 the patient is here for a pulmonary follow-up visit. Since we last spoke back in December did develop a worsening cough. Productive in nature. She felt some discomfort in the right side of her chest. [id number] severity. She was going to call the office but she just stayed home and she continue her respiratory medications. She is felt better overall. She has been working outside with a limitations. Although still feels a slight achiness on the right lung area. Her last chest x-ray was last year which demonstrated no acute disease. The patient has been on Ventolin. She did undergo pulmonary function studies which we personally reviewed demonstrating a mild obstruction. Therefore, I did have a sample of Breo to provide her and she is going to try daily. I did instruct her how to use it. In addition to that if her symptoms persist I did give her an x-ray order she can come in and get an x-ray. Will follow-up in 6 months or sooner if she does not feel any better. 10/29/2024 the patient is here for pulmonary follow-up visit. Overall she is doing okay. She could not get the Breo filled. Was not covered by her insurance. She has had to use her rescue inhaler. 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 The patient does have allergy medicines that she takes as well. She needs to have a maintenance inhaler. I will go ahead and send her Symbicort looks like it is covered. We did talk about how to use it. The patient did have a chest x-ray which we personally reviewed. Her lung parenchyma looks good. She does have some scoliosis. If she has any issues she will call for an earlier assessment otherwise will follow-up in the end of the summer. 08/13/2025 the patient is here for pulmonary follow-up visit. Overall the patient is doing well on the current respiratory regimen. She is using Symbicort twice a day and has a rescue inhaler. She has a hard time with strong smells and odors. Causes her to have coughing and chest tightness. She has not had any exacerbations. She has been taking care of her who was involved in a traumatic accident at work. He is recovering well. The patient continues to use her allergy medicine as needed. No recent imaging studies at this time. She does not take any vaccines. Otherwise the patient is doing well will follow-up in a year's time if she has any issues she can always call for an earlier assessment. 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, rides horses Housing: House Patient Tobacco Use Status: Former Tobacco user Tobacco use type: Cigarette Years Smoked: 25 Years e-Cigarette/Vaping Use: Never Used service: No Current occupational status: retired Cognitive needs: No Hearing needs: No Vision needs: No Review of Systems Const Denies fever(s) Eyes Denies change in vision ENT Denies change in voice and Reports nasal congestion Card Denies chest pain and Denies dyspnea Resp Reports cough and Denies dyspnea GI Reports no additional complaints Musc Reports no additional complaints Skin/Breast Denies rash Neuro Reports no additional complaints Physical Exam Vital Signs: BMI result Body Mass Index 24.2 Const General: comfortable HEENT Head: Yes normal to inspection Eyes General: appearance normal, both eyes and all related structures Neck Neck: Yes supple Chest Chest palpation & inspection: normal inspection of the chest Resp Effort & Inspection: normal respiratory effort Auscultation: diminished lung sounds Cardio Rate: regular rate Rhythm: regular rhythm Heart sounds: S1 normal heart sound present and S2 normal heart sound present Skin General skin exam: no rashes or lesions noted Extrem General: No clubbing, No cyanosis and Yes edema (trace) Assessment & Plan Assessment & Plan (1) Asthma: Comment: Controlled on Symbicort and zafirlukast, established with pulmonology, patient declined Pneumovax and influenza vaccine Code(s): J45.909 - Unspecified asthma, uncomplicated Category: Medical Qualifiers: Asthma complication type: uncomplicated Asthma persistence: intermittent Asthma severity: mild Qualified Code(s): J45.20 - Mild intermittent asthma, uncomplicated (2) Chronic rhinitis: Code(s): J31.0 - Chronic rhinitis Category: Medical Plan continue Symbicort continue EDGARDO as needed nasal rinsing continue Accolate BID anti-histamine as needed CXR ok F/U 8 months Coding Level of Care Code Est Pt Level 4 (05035) Diagnoses Mild intermittent asthma without complication J45.20 Asthma complication type: uncomplicated Asthma persistence: intermittent Asthma severity: mild Chronic rhinitis J31.0 Time Spent (min) 16
== END 2025-08-13 08:42 | disposition home or self-care (01) ==
LOC: HO.HPS 07:56
PROVIDERS: PCP Internal Medicine; Visit Provider Hospitalist
DX: J45.20 Mild intermittent asthma, uncomplicated (principal); J31.0 Chronic rhinitis
CPT/HCPCS: 99214

== ENCOUNTER → 2025-08-13 07:55 | Outpatient (BNVA) | payer MEDICARE, OTHER, SELFPAY | PROVIDERS: PCP Internal Medicine; Visit Provider Hospitalist | DX: J45.20 Mild intermittent asthma, uncomplicated (principal); J31.0 Chronic rhinitis | CPT/HCPCS: 99212 ==